=== PATIENT | male | born 1945 | race African-American/Black ===

== ENCOUNTER → 2017-11-08 | Outpatient (CLI) | payer MEDICARE ==
[~2017-11-08] MED LIST: IOHEXOL-300 100 ML BOTTLE ONE
== END | disposition home or self-care (01) ==
LOC: NM 07:21
PROVIDERS: ATTEND Urology
DX: D71 Functional disorders of polymorphonuclear neutrophils (principal); N40.0 Benign prostatic hyperplasia without lower urinary tract symptoms; C79.51 Secondary malignant neoplasm of bone; M48.061 Spinal stenosis, lumbar region without neurogenic claudication; C61 Malignant neoplasm of prostate
CPT/HCPCS: 71046; 72193; 78306; A9500; Q9967

== ENCOUNTER 2020-02-14 15:06 | Emergency (ER) | payer MEDICARE ==
[~2020-02-14] VITALS: Ht 177.8 cm; Wt 91.0 kg
[~2020-02-14 15:06] MED LIST changes: +ETOMIDATE 2MG/ML 10ML VIAL IV ONE; -IOHEXOL-300 100 ML BOTTLE ONE; +SUCCINYLCHOLINE CHLORIDE 200MG/10ML IV ONE
[2020-02-14 16:00] VITALS: BP 63/43
[2020-02-14] MEDS ORDERED: LORAZEPAM 2MG/ML CPJ ONE (16:19)
[2020-02-14] MEDS ORDERED: NOREPINEPHRINE 8MG/250ML PMX 250 ML IV ONE (16:20)
[2020-02-14] MEDS ORDERED: SODIUM CHLORIDE 0.9% 1000ML BAG (SEPSIS BOLUS) IV ONE (16:30)
[2020-02-14] MEDS ORDERED: LORAZEPAM 2MG/ML CPJ IV ONE (16:30)
[2020-02-14] MEDS ORDERED: NOREPINEPHRINE 8MG/250ML PMX 250 ML IV PRN (16:30)
[2020-02-14] MEDS ORDERED: CEFTRIAXONE 1 G PREMIX 50 ML IV ONE (16:30)
[2020-02-14] MEDS ORDERED: DOPAMINE 800MG PREMIX (DOUBLE) 250 ML IV ONE (16:30)
[2020-02-14] MEDS ORDERED: DOPAMINE 400MG/250ML PREMIX 250 ML IV ONE (16:35)
[2020-02-14] MEDS ORDERED: EPINEPHRINE 0.1MG/ML (1:10,000) 10ML SYR ONE (16:46)
== END 2020-02-14 22:27 | disposition expired ==
LOC: ER 15:06 → CANBEDREQ 17:54 → ER 22:27
DX: J96.90 Respiratory failure, unspecified, unspecified whether with hypoxia or hypercapnia (principal); I46.9 Cardiac arrest, cause unspecified; I95.9 Hypotension, unspecified; G93.40 Encephalopathy, unspecified; E11.9 Type 2 diabetes mellitus without complications; I10 Essential (primary) hypertension; Z85.46 Personal history of malignant neoplasm of prostate; Z87.01 Personal history of pneumonia (recurrent); Z87.440 Personal history of urinary (tract) infections
CPT/HCPCS: 31500; 36556; 92950; 93005; 94002; 99285; J0330; J1265; J3490; J7030; J2060